=== PATIENT | male | born 1950 | race Caucasian/White ===

== ENCOUNTER → 2018-02-07 | Outpatient (CLI) | payer MEDICARE, BC | END | disposition home or self-care (01) | LOC: PCVCCLINIC 10:06 | DX: I42.9 Cardiomyopathy, unspecified (principal); M54.9 Dorsalgia, unspecified; G89.29 Other chronic pain; E27.40 Unspecified adrenocortical insufficiency; R94.31 Abnormal electrocardiogram [ECG] [EKG]; Z79.899 Other long term (current) drug therapy; Z88.8 Allergy status to other drugs, medicaments and biological substances; Z86.79 Personal history of other diseases of the circulatory system | CPT/HCPCS: 80061; 93005; G0463 ==

== ENCOUNTER → 2018-02-16 | Outpatient (CLI) | payer MEDICARE, BC ==
[~2018-02-16] MED LIST: DIAZEPAM 10 MG TABLET.; FAMOTIDINE 20 MG/2 ML VIAL; IOHEXOL 350 MG/ML 100 ML VIAL.; IOHEXOL 350 MG/ML 50 ML VIAL.; IV NORMAL SALINE 500ML BAG 500 ML; MIDAZOLAM HCL/PF 2 MG/2 ML VIAL.; diphenhydrAMINE 50 MG/ML VIAL; fentaNYL PF VIAL 100 MCG/2 ML VIAL; methylPREDNISolone SOD SUCC PF 125 MG/2 ML VIAL.
== END | disposition home or self-care (01) ==
LOC: PCVCINTER 14:51
DX: I25.10 Atherosclerotic heart disease of native coronary artery without angina pectoris (principal); I70.1 Atherosclerosis of renal artery; I35.1 Nonrheumatic aortic (valve) insufficiency; J45.909 Unspecified asthma, uncomplicated
CPT/HCPCS: 36252; 93460; 93567; C1751; C1760; C1769; C1894; J1200; J1644; J2250; J2930; J3010; J7040; Q9967; S0028

== ENCOUNTER → 2018-06-02 | Outpatient (CLI) | payer MEDICARE, BC ==
--- NOTE | 2018-06-02 13:49 | PCVCIMAG ---
APPROVED REPORT Study performed: 06/02/2018 10:12:48 EXAM: Comprehensive 2D, Doppler, and color-flow Echocardiogram Patient Location: Echo lab Room #: 2Status: routine BSA: 2.12 HR: 61 bpmBP: 132/86 mmHg Rhythm: NSR Other Information Study Quality: Good Indications Congestive Heart Failure Cardiomyopathy 2D Dimensions IVSd: 7.64 (7-11mm)LVOT Diam: 21.57 (18-24mm) LVDd: 58.09 mm PWd: 8.50 (7-11mm)Ascending Ao: 33.49 (22-36mm) LVDs: 41.53 (25-40mm) Left Atrium: 33.44 (27-40mm) Aortic Root: 31.21 mm LV Single Plane 4CH: 54.24 % LV Single Plane 2CH: 52.25 % Biplane EF: 52.4 % Volumes Left Atrial Volume (Systole) Single Plane 4CH: 55.59 mLSingle Plane 2CH: 50.30 mL Biplane LA Volume: 53.00 mLLA ESV Index: 25.00 mL/m2 Aortic Valve AoV Peak Xu.: 1.24 m/s AO Peak Gr.: 6.14 mmHgLVOT Max P.55 mmHg LVOT Max V: 0.80 m/s HATTIE Vmax: 2.36 cm2 AI Vmax: 3.68 m/s AI [place]: 1.47 m/s2 AI PHT: 725.67 ms Mitral Valve E/A Ratio: 0.7 MV Decel. Time: 192.42 ms MV E Max Xu.: 0.58 m/s MV A Xu.: 0.81 m/s IVRT: 79.58 ms TDI E/Lateral E': 8.29E/Medial E': 11.60 Medial E' Xu.: 0.05 m/s Lateral E' Xu.: 0.07 m/s Pulmonary Vein P Vein S: 0.53 m/sP Vein A: 0.20 m/s P Vein D: 0.43 m/sP Vein A Dur.: 110.7 msec P Vein S/D Ratio: 1.23 Tricuspid Valve TR Peak Xu.: 2.63 m/s TR Peak Gr.: 27.66 mmHg TV Vmax: 0.54 m/sPA Pressure: 35.00 mmHg Left Ventricle Left ventricle is mildly dilated. There is normal LV segmental wall motion. There is normal left ventricular wall thickness. Left ventricular systolic function is low normal. LVEF is 50-55%. Grade I - abnormal relaxation pattern. Right Ventricle The right ventricle is normal size. The right ventricular systolic function is normal. Atria The left atrium size is normal. The right atrium size is normal. Aortic Valve Aortic valve is trileaflet. Mild aortic regurgitation. There is no aortic valvular stenosis. Mitral Valve The mitral valve is normal in structure. There is no mitral valve regurgitation noted. No evidence of mitral valve stenosis. Tricuspid Valve The tricuspid valve is normal in structure. Trace tricuspid regurgitation with a PA pressure of 35 mmHg. Pulmonic Valve The pulmonary valve is normal in structure. There is no pulmonic valvular regurgitation. Great Vessels The aortic root is normal in size. The ascending aorta is normal in size. Aortic arch is normal in caliber. IVC is not well visualized. Pericardium There is no pericardial effusion. There is no pleural effusion. <Conclusion> Left ventricle is mildly dilated. Left ventricular systolic function is low normal. LVEF is 50-55%. Grade I - abnormal relaxation pattern. The right ventricle is normal size. The left atrium size is normal. Aortic valve is trileaflet. Mild aortic regurgitation. There is no mitral valve regurgitation noted. Trace tricuspid regurgitation with a PA pressure of 35 mmHg. The aortic root is normal in size. There is no pericardial effusion.
== END | disposition home or self-care (01) ==
LOC: PCVCIMAG 11:16
PROVIDERS: ATTEND Internal Medicine Cardiovascular Disease
DX: I42.9 Cardiomyopathy, unspecified (principal); I77.810 Thoracic aortic ectasia; I50.9 Heart failure, unspecified; I06.1 Rheumatic aortic insufficiency; Z79.899 Other long term (current) drug therapy
CPT/HCPCS: 93005; 93306; G0463

== ENCOUNTER → 2018-12-05 | Outpatient (CLI) | payer MEDICARE, BC | END | disposition home or self-care (01) | LOC: PCVCCLINIC 15:31 | PROVIDERS: ATTEND Internal Medicine Cardiovascular Disease | DX: I42.9 Cardiomyopathy, unspecified (principal); I35.1 Nonrheumatic aortic (valve) insufficiency; I77.810 Thoracic aortic ectasia; J45.909 Unspecified asthma, uncomplicated; Z79.82 Long term (current) use of aspirin; Z90.49 Acquired absence of other specified parts of digestive tract; Z88.5 Allergy status to narcotic agent; Z79.899 Other long term (current) drug therapy | CPT/HCPCS: 36415; 80061; 93005; G0463 ==

== ENCOUNTER → 2019-07-16 | Outpatient (CLI) | payer MEDICARE, BC ==
--- NOTE | 2019-07-16 16:43 | PCVCIMAG ---
APPROVED REPORT Study performed: 07/16/2019 12:58:12 EXAM: Comprehensive 2D, Doppler, and color-flow Echocardiogram Patient Location: Echo lab Status: routine BSA: 2.12 HR: 86 bpmBP: 140/86 mmHg Rhythm: NSR Other Information Study Quality: Adequate Indications Cardiomyopathy aortic insufficiency, dilated aortic sinus of valsalva 2D Dimensions IVSd: 12.94 (7-11mm) LVDd: 54.64 mm PWd: 12.56 (7-11mm)Ascending Ao: 34.85 (22-36mm) LVDs: 43.61 (25-40mm) Left Atrium: 42.81 (27-40mm) Aortic Root: 35.78 mm LV Single Plane 4CH: 48.46 % LV Single Plane 2CH: 52.46 % Biplane EF: 52.3 % Volumes Left Atrial Volume (Systole) Single Plane 4CH: 50.86 mLSingle Plane 2CH: 52.88 mL LA ESV Index: 25.00 mL/m2 Aortic Valve AoV Peak Xu.: 1.42 m/s AO Peak Gr.: 8.06 mmHgLVOT Max P.26 mmHg LVOT Max V: 1.15 m/s AI Vmax: 4.61 m/s AI [place]: 3.05 m/s2 AI PHT: 441.44 ms Mitral Valve E/A Ratio: 0.7 MV Decel. Time: 246.25 ms MV E Max Xu.: 0.60 m/s MV A Xu.: 0.83 m/s IVRT: 103.81 ms Pulmonary Valve PV Peak Xu.: 1.16 m/sPV Peak Gr.: 5.42 mmHg Pulmonary Vein P Vein S: 0.36 m/sP Vein A: 0.32 m/s P Vein D: 0.49 m/sP Vein A Dur.: 145.3 msec P Vein S/D Ratio: 0.73 Tricuspid Valve TR Peak Xu.: 2.28 m/s TR Peak Gr.: 20.71 mmHg Left Ventricle The left ventricle is normal size. There is normal LV segmental wall motion. Mild concentric left ventricular hypertrophy. Left ventricular systolic function is borderline lower limits of normal. LVEF is 50%. Grade I - abnormal relaxation pattern. Right Ventricle The right ventricle is normal size. The right ventricular systolic function is normal. Atria The left atrium size is normal. The right atrium size is normal. Aortic Valve The aortic valve is normal in structure. Mild to moderate aortic regurgitation. There is no aortic valvular stenosis. Mitral Valve The mitral valve is normal in structure. Mild mitral regurgitation. No evidence of mitral valve stenosis. Tricuspid Valve The tricuspid valve is normal in structure. Trace tricuspid regurgitation with PAP of 28 mmHg. Pulmonic Valve The pulmonary valve is normal in structure. Mild pulmonic regurgitation. Great Vessels Sinus of Valsalva aneurysm is present dilated to 4.5 cm. Normal aortic root. The ascending aorta is normal in size. IVC is normal in size and collapses >50% with inspiration. Pericardium There is no pericardial effusion. There is no pleural effusion. <Conclusion> The left ventricle is normal size. Mild concentric left ventricular hypertrophy. LVEF is 50%. Grade I - abnormal relaxation pattern. The right ventricle is normal size. The left atrium size is normal. Mild to moderate aortic regurgitation. There is no aortic valvular stenosis. Mild mitral regurgitation. Trace tricuspid regurgitation with PAP of 28 mmHg. Sinus of Valsalva aneurysm is present dilated to 4.5 cm. Normal aortic root. There is no pericardial effusion.
== END | disposition home or self-care (01) ==
LOC: PCVCIMAG 14:06
PROVIDERS: ATTEND Internal Medicine Cardiovascular Disease
DX: I11.9 Hypertensive heart disease without heart failure (principal); I08.0 Rheumatic disorders of both mitral and aortic valves; I42.9 Cardiomyopathy, unspecified; E78.5 Hyperlipidemia, unspecified; J45.909 Unspecified asthma, uncomplicated; Z90.49 Acquired absence of other specified parts of digestive tract; Z80.9 Family history of malignant neoplasm, unspecified; Z83.3 Family history of diabetes mellitus; Z79.82 Long term (current) use of aspirin; Z79.899 Other long term (current) drug therapy; Z88.5 Allergy status to narcotic agent; Z88.0 Allergy status to penicillin; Z91.040 Latex allergy status
CPT/HCPCS: 36415; 80061; 93005; 93306; G0463